=== PATIENT | female | born 2000 | race Caucasian/White ===

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

== ENCOUNTER 2024-07-21 11:52 | Inpatient (IN) | payer MEDICAID ==
[2024-07-21] MEDS ORDERED: Lidocaine 1% 50 ML MDV INJECT PRN (12:08)
[2024-07-21] MEDS ORDERED: Nalbuphine 10 MG/1 ML Vial IVPUSH PRN (12:08)
[2024-07-21 12:41] LABS: BASOPHILS PERCENT AUTO 0.3 % (0.0-1.0); EOSINOPHILS ABSOLUTE AUTO 0.3 K/mm3 (0.0-0.4); EOSINOPHILS PERCENT AUTO 3.4 % (0.0-6.0); HEMOGLOBIN 10.3 gm/dl (12.0-16.0); IMMATURE GRAN ABSOLUTE AUTO 0.09 K/mm3 (0.00-0.05); IMMATURE GRAN PERCENT AUTO 0.9 % (0.0-0.4); LYMPHOCYTES ABSOLUTE AUTO 1.5 K/mm3 (1.0-4.8); LYMPHOCYTES PERCENT AUTO 15.5 % (24.0-44.0); MEAN CORPUSCULAR HEMOGLOBIN 26.9 pg (28.0-32.0); MEAN CORPUSCULAR HGB CONC 33.2 g/dl (32.0-36.0); MEAN PLATELET VOLUME 11.6 fl (9.4-12.3); MONOCYTES ABSOLUTE AUTO 0.6 K/mm3 (0.0-0.8); MONOCYTES PERCENT AUTO 6.1 % (0.0-8.0); NEUTROPHILS ABSOLUTE AUTO 7.2 K/mm3 (1.8-7.7); NEUTROPHILS PERCENT AUTO 73.8 % (41.0-71.0); PLATELET COUNT,PLT 156 K/mm3 (150-400); RED BLOOD CELL COUNT 3.83 M/mm3 (4.10-5.30); WHITE BLOOD CELL COUNT,WBC 9.72 K/mm3 (3.9-11.3)
[2024-07-21 12:45] LABS: MEAN CORPUSCULAR VOLUME 80.9 fl (83.0-99.0)
[2024-07-21] MEDS: Lactated Ringers 1,000 ML IV SCH (12:46)
[2024-07-21] MEDS ORDERED: diphenhydrAMINE 50 MG/ML SDV IVPUSH PRN (13:20)
[2024-07-21] MEDS ORDERED: ePHEDrine 50 MG/ML SDV IVPUSH PRN (13:20)
[2024-07-21] MEDS: Bupivacaine/fentaNYL/NS 100 ML Bag EPIDUR PRN (13:28)
[2024-07-21] MEDS: Ondansetron 4 MG/2 ML SDV IVPUSH PRN (14:49)
[2024-07-21] MEDS: Oxytocin/0.9 % Sodium Chloride 30 UNIT/500 ML BAG IV SCH (17:18)
[2024-07-21] MEDS ORDERED: Oxytocin/Lactated Ringers 30 UNIT/500 ML BAG IV SCH (18:24)
[2024-07-21] MEDS ORDERED: Magnesium Hydroxide 400 MG/5 ML Susp 30 ML Cup PO PRN (18:24)
[2024-07-21] MEDS ORDERED: Hydrocortisone Acetate 25 MG Supp RECTAL PRN (18:24)
[2024-07-21] MEDS: Ibuprofen 600 MG Tab PO SCH (20:19)
[2024-07-21] MEDS: Witch Hazel Medicated Pads 40/Jar TOP PRN (20:19)
[2024-07-21] MEDS: Benzocaine/Menthol 20%-0.5% Spray 78 GM Cannister TOP PRN (20:19)
[2024-07-21] MEDS ORDERED: Sodium Chloride 0.9% 10 ML Syringe FLUSH SCH (21:00)
[2024-07-21] MEDS: Acetaminophen 325 MG Tab PO PRN (22:38)
[2024-07-22] MEDS: Levothyroxine 50 MCG Tab PO SCH (06:40)
[2024-07-22] MEDS: Prenatal Multivitamin with Calcium/Folic Acid/Iron Tab PO SCH (09:45)
[2024-07-22] MEDS: Docusate Sodium 100 MG Cap PO PRN (13:20)
[2024-07-22] MEDS: Measles, Mumps & Rubella Vaccine 0.5 ML SDV SUBCUT ONE (18:58)
== END 2024-07-22 18:54 | disposition home or self-care (01) | DRG 807 ==
LOC: JD.OB 11:52 → OBSVTOIN 17:16 → JD.OB 17:16
PROVIDERS: ADMIT Obstetrics & Gynecology; ATTEND Obstetrics & Gynecology
PROC: 10E0XZZ Delivery of Products of Conception, External Approach (ICD-10-PCS; principal; 2024-07-21)
PROC: 10907ZC Drainage of Amniotic Fluid, Therapeutic from Products of Conception, Via Natural or Artificial Opening (ICD-10-PCS; 2024-07-21)
PROC: 0HQ9XZZ Repair Perineum Skin, External Approach (ICD-10-PCS; 2024-07-21)
PROC: 3E0R3BZ Introduction of Anesthetic Agent into Spinal Canal, Percutaneous Approach (ICD-10-PCS; 2024-07-21)
PROC: 00HU33Z Insertion of Infusion Device into Spinal Canal, Percutaneous Approach (ICD-10-PCS; 2024-07-21)
DX: O99.284 Endocrine, nutritional and metabolic diseases complicating childbirth (principal); Z37.0 Single live birth; E03.9 Hypothyroidism, unspecified; O77.0 Labor and delivery complicated by meconium in amniotic fluid; O99.814 Abnormal glucose complicating childbirth; O99.12 Other diseases of the blood and blood-forming organs and certain disorders involving the immune mechanism complicating childbirth; D69.6 Thrombocytopenia, unspecified; O69.81X0 Labor and delivery complicated by cord around neck, without compression, not applicable or unspecified; O70.0 First degree perineal laceration during delivery; Z3A.39 39 weeks gestation of pregnancy
CPT/HCPCS: 36415; 51701; 59025; 59409; 82947; 85025; 86592; 86850; 86900; 86901; A9270-GY; J2405; J3490; J7120; J7999